=== PATIENT | female | born 1940 | race Caucasian/White ===

== ENCOUNTER → 2017-01-25 | Outpatient (CLI) | payer OTHER, MEDICARE | LOC: MMPC 11:11 | PROVIDERS: ATTEND Internal Medicine | DX: E05.90 Thyrotoxicosis, unspecified without thyrotoxic crisis or storm (principal); M35.00 Sjogren syndrome, unspecified; R63.6 Underweight; L30.9 Dermatitis, unspecified; L81.7 Pigmented purpuric dermatosis | CPT/HCPCS: 99214; G0463 ==

== ENCOUNTER → 2017-04-01 | Outpatient (CLI) | payer OTHER, MEDICARE ==
[2017-04-01 18:06] LABS: FREE T4 (FREE THYROXINE) 0.73 ng/dL (0.93-1.71)
== END ==
LOC: MOB LAB 16:08
DX: E05.90 Thyrotoxicosis, unspecified without thyrotoxic crisis or storm (principal)
CPT/HCPCS: 36415; 84439; 84443; 84481